=== PATIENT | female | born 2000 | race Caucasian/White ===

== ENCOUNTER 2022-07-20 21:46 | Emergency (ER) | payer BC ==
[~2022-07-20] VITALS: Ht 170.2 cm; Wt 62.6 kg
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
[2022-07-20] MEDS ORDERED: MORPHINE SULFATE INJ 2 MG/ML DISP.SYRIN IV ONE (22:00)
[2022-07-20] MEDS ORDERED: MORPHINE SULFATE INJ 4 MG/ML DISP.SYRIN ONE (22:11)
[2022-07-20] MEDS ORDERED: PROPOFOL 200 MG/20 ML VIAL IV ONE ×2 (23:00)
[2022-07-20] MEDS ORDERED: PROPOFOL 20 ML IV ONE ×2 (23:02→23:32)
[2022-07-20] MEDS ORDERED: KETO10TA2 PO (23:05)
[2022-07-20] MEDS ORDERED: OXYC-128 PO (23:05)
--- NOTE | 2022-07-20 23:30 | NUR ---
DISLOCATED L SHOULDER REDUCTION DONE BY DR ROBBINS WITH DIPRIVAN 60MG AT 2317 BP-133/78, OR-70 AND DIPRIVAN 30MG AT 2317. STILL DISLOCATED SEEN AT X-RAY.
--- NOTE | 2022-07-20 23:55 | NUR ---
SECOND ATTEMP REDUCTION OF L SHOULDER DISLOCATION BY DR ROBBINS WITH DIPRIVAN 90MG- SUCCESS DISLOCATED L SHOULDER REDUCED.
[2022-07-21] MEDS ORDERED: PROPOFOL 200 MG/20 ML VIAL IV ONE ×2
[2022-07-21 00:23] VITALS: BP 130/81
--- NOTE | 2022-07-21 00:23 | NUR ---
Patient discharged to home in stable condition. Written and verbal after care instructions given. Patient verbalizes understanding of instruction.
== END 2022-07-21 00:35 | disposition home or self-care (01) ==
LOC: ER 21:49
DX: S43.005A Unspecified dislocation of left shoulder joint, initial encounter (principal); Z79.899 Other long term (current) drug therapy; W18.30XA Fall on same level, unspecified, initial encounter; Y93.89 Activity, other specified; Y92.89 Other specified places as the place of occurrence of the external cause; Y99.8 Other external cause status
CPT/HCPCS: 99285; 23650; 96374; 99152; 73030; 73020; J2704 ×2; J2270; G0500